=== PATIENT | male | born 1985 | race Two or more races ===

== ENCOUNTER 2019-02-11 20:27 | Emergency (ER) | payer BC, OTHER ==
[~2019-02-11] VITALS: Ht 165.1 cm; Wt 81.8 kg
[~2019-02-11 20:27] MED LIST: ONDA4TAB12 PO
[2019-02-11 20:32] VITALS: BP 136/86
[2019-02-11] MEDS ORDERED: PRED20TA PO (22:34)
[2019-02-11] MEDS ORDERED: HYDR28CR14 TOP (22:34)
[2019-02-11] MEDS ORDERED: triamcinolone acetonide 40mg/ml inj IM ONE (22:35)
== END 2019-02-11 22:54 | disposition home or self-care (01) ==
LOC: ER 20:28
DX: L23.7 Allergic contact dermatitis due to plants, except food (principal); Z79.899 Other long term (current) drug therapy
CPT/HCPCS: 96372; 99283; J3301